=== PATIENT | female | born 1945 | race Caucasian/White ===

== ENCOUNTER 2017-12-07 14:18 | Emergency (ER) | payer OTHER ==
[~2017-12-07] VITALS: Ht 154.9 cm; Wt 64.7 kg
[~2017-12-07 14:18] MED LIST: ALBU2.5V NPPB; LEVO750T26 PO; PRED20TA PO
[2017-12-07 14:25] VITALS: BP 160/83
== END 2017-12-07 16:06 | disposition home or self-care (01) ==
LOC: ED 16:00
DX: B85.0 Pediculosis due to Pediculus humanus capitis (principal); E11.9 Type 2 diabetes mellitus without complications; I10 Essential (primary) hypertension; E78.00 Pure hypercholesterolemia, unspecified
CPT/HCPCS: 99283

== ENCOUNTER → 2018-09-15 | Outpatient (CLI) | payer OTHER | END | disposition home or self-care (01) | LOC: CFH 10:24 | PROVIDERS: ATTEND Family Medicine | DX: Z12.31 Encounter for screening mammogram for malignant neoplasm of breast (principal) | CPT/HCPCS: 77067 ==